=== PATIENT | female | born 1980 | race Caucasian/White ===

== ENCOUNTER 2016-07-18 10:20 | Emergency (ER) | payer BC ==
[~2016-07-18] VITALS: Ht 165.1 cm; Wt 59.4 kg
[~2016-07-18 10:20] MED LIST: ASPI-390 PO; GABA-112 PO; IBUP-103 PO; PARO10TA PO
[2016-07-18 10:24] VITALS: Ht 165.1 cm; Wt 59.4 kg
[2016-07-18] MEDS ORDERED: AZITTAB PO (10:32)
[2016-07-18] MEDS ORDERED: KETOROLAC TROMETHAMINE 60 MG/2 ML VIAL IM STA (11:16)
[2016-07-18] MEDS ORDERED: PROCHLORPERAZINE 5 MG/ML 2 ML VIAL IM STA (11:16)
[2016-07-18] MEDS ORDERED: DiphenhydrAMINE HCL 50 MG/ML VIAL IM STA (11:16)
[2016-07-18] MEDS ORDERED: DEXAMETHASONE SOD INJ 10 MG/ML VIAL IM ONE (11:30)
[2016-07-18 11:49] VITALS: TEMP 36.7
[2016-07-18] MEDS ORDERED: PERCOCET HOME PACK PO ONE (12:15)
--- NOTE | 2016-07-18 12:24 | EMERGENCY ROOM VISIT NOTE ---
ED Visit Note First contact with patient: 10:51 CHIEF COMPLAINT: Migraine headache 2 days HISTORY OF PRESENT ILLNESS: Patient is an otherwise healthy 36-year-old white female who does suffer from migraine headaches, who presents the emergency department for evaluation of a migraine 2 days. Patient states that the headache started yesterday. She took Benadryl and ibuprofen, and the symptoms improved slightly. She states that when she woke up however the headache had returned and was intolerable. She rates her discomfort a 9/10. She describes a throbbing, frontal headache with associated nausea, vomiting, photo and phonophobia. Patient reports that she is finishing a course of azithromycin. She also took Tamiflu prophylactically. Ago after her tested positive for influenza B. Patient followed by Dr. Amaya of neurology. She has had thorough workup for her migraines including laboratory studies and MRI. She states that she has been on multiple preventative and abortive medications, but they are ineffective and therefore she does not take anything for her migraines. She states that other than the frontal location this does feel typical of a bad migraine for her. She denies any fever or chills, posterior neck pain or stiffness. No difficulty with balance, speech or coordination. No weakness or numbness of the extremities. No trauma to the head and no neck pain. REVIEW OF SYSTEMS: Review of systems as per HPI. All other systems reviewed were negative. 10 systems reviewed. PMH: Electronic medical records are reviewed and summarized as above/below. See Problem List. SOCIAL HISTORY: Patient lives at home with her and children. Nonsmoker. She is employed as a teacher.. PHYSICAL EXAM: Vital Signs: Reviewed Nurse's notes. General Appearance: Patient is an uncomfortable appearing 36-year-old white female who is awake and alert and laying in a darkened room in moderate distress due to her migraines. Eyes: Pupils equal round reactive to light extraocular muscles are intact, no proptosis, mild photophobia ENT: Oropharynx is clear, mucous membranes are moist, tympanic membranes are clear bilaterally, no sinus or dental tenderness Neck: Supple, no cervical lymphadenopathy, no meningismus Heart: Regular rate and rhythm, S1 and S2 Lungs: Clear to auscultation bilaterally, no wheezes Rales or rhonchi, no increased work of breathing Abdomen: Soft nontender nondistended. Normal active bowel sounds. No rebound. No guarding. Back: No midline tenderness to palpation. : No CVA tenderness to palpation. Skin: Warm, no diaphoresis, no rashes. Extremities: No cyanosis, clubbing, or edema Neurologic: Patient is awake alert, and oriented x 3. Cranial nerves 2-12 are grossly intact. Motor 5 out of 5 strength bilateral upper extremities and lower extremities. No gross sensory deficits. Reflexes are 2+ throughout. EMERGENCY DEPARTMENT COURSE: The patient is seen and evaluated as above. She is seen infrequently for migraines. She typically receives intramuscular therapy. She declines IV. She was given Toradol 60 mg IM, Benadryl 25 mg IM, Compazine 10 mg IM and Decadron 10 mg IM. The patient was reassessed. She reported that her headache had improved and she was feeling well enough to be discharged to home. She was given a Percocet home pack. She rated her discomfort a 2/10 at discharge. A family member is driving. Differential includes: acute intracranial bleed, meningitis, encephalitis, mass or mass effect, sinusitis, infection, migraine, tumor, headache, temporal arteritis and carbon monoxide exposure. Problem List Medical Problems: (1) Breech presentation Status: Resolved (2) Chest pain Status: Resolved (3) ESOPHAGEAL REFLUX Status: Chronic (4) Gestational hypertension Status: Resolved (5) Hypertension Status: Resolved (6) Migraine headache Status: Chronic (7) Normal labor Status: Resolved (8) Normal labor Status: Resolved (9) Ovarian cyst Status: Resolved (10) Patient currently Status: Resolved (11) -induced hypertension Status: Resolved (12) R/O PROM 22 weeks Status: Resolved (13) R/O PROM 22 weeks Status: Resolved (14) Vaginal after , delivered, current hospitalization Status: Resolved Surgical Problems: (1) Previous delivery affecting Status: Resolved Current/Historical Medications Scheduled Czqpuvv-Pmddnfnmdfrct-Hoykdlwc (Excedrin Migraine), 2 TABS PO PRN UD Azithromycin (Zithromax Z-Duncan), 1 PKT PO UD Ibuprofen Tab (Advil), 600 MG PO PRN UD Allergies Coded Allergies: No Known Allergies (Unverified , NONE, 07/18/16) Vital Signs Date Time Temp Pulse Resp B/P Pulse Ox O2 Delivery O2 Flow Rate FiO2 07/18/16 12:46 68 104/68 96 Room Air 07/18/16 11:49 36.7 87 16 122/87 98 Room Air 07/18/16 10:24 36.9 86 20 146/96 98 Room Air Medications Administered Medications (Trade) Dose Ordered Sig/Annette Route Start Time Stop Time Status Last Admin Dose Admin Ketorolac Tromethamine (Toradol Inj) 60 mg NOW STAT IM 07/18/16 11:16 07/18/16 11:18 DC 07/18/16 11:40 60 MG Diphenhydramine HCl (Benadryl Inj) 25 mg NOW STAT IM 07/18/16 11:16 07/18/16 11:18 DC 07/18/16 11:38 25 MG Prochlorperazine Edisylate (Compazine Inj) 10 mg NOW STAT IM 07/18/16 11:16 07/18/16 11:18 DC 07/18/16 11:39 10 MG Dexamethasone Sodium Phosphate (Decadron Inj) 10 mg NOW ONCE IM 07/18/16 11:30 07/18/16 11:31 DC 07/18/16 11:37 10 MG Oxycodone/ Acetaminophen (Percocet 5/ 325MG Home Pack) 1 homepack UD ONCE PO 07/18/16 12:15 07/18/16 12:16 DC 07/18/16 12:51 1 HOMEPACK Departure Information Impression Primary Impression: Headache Referrals Cuco Liriano M.D.([facility]) (PCP) Patient Instructions My [facility] Additional Instructions DO NOT drive, drink alcohol, operate machinery, or perform dangerous activities today. You were given medications in the ER that can affect your ability to safely function or operate a vehicle. Percocet 1-2 tablets every 4-6 hours as needed for breakthrough pain. Rest today in a quiet, peaceful, dark environment and get a full 8-10 hrs of sleep tonight. Avoid loud noises, smoke/smoking, alcohol, bright lights, stress, or physical exertion today to minimize the chance the headache may return. Continue current medications. Ibuprofen(Motrin, Advil) may be used for fever or pain. Use 600mg every six hours as needed. Take with food. Avoid using more than 2400mg in a 24 hour period. Do not use 2400mg per day for more than three consecutive days without physician direction. Prolonged inappropriate use can lead to stomach upset or ulcers. (AND/OR) Acetaminophen(Tylenol) may be used for fever or pain. Use 1000mg every six hours as needed. Avoid using more than 3000mg in a 24 hour period. Return to the ER for passing out, worsening headache, vision problems, neck stiffness/pain, fevers, vomiting, worsening of your condition, or as needed. Follow up with your primary physician or neurologist if needed for a recheck of your current condition.
[2016-07-18 12:46] VITALS: BP 104/68; PULSE 68; O2SAT 96
== END 2016-07-18 12:50 | disposition home or self-care (01) ==
LOC: C.EDB 10:22 → C.EDD 12:50
DX: G43.909 Migraine, unspecified, not intractable, without status migrainosus (principal); K21.9 Gastro-esophageal reflux disease without esophagitis

== ENCOUNTER → 2016-10-15 | Outpatient (CLI) | payer BC ==
[~2016-10-15] MED LIST changes: +AZITTAB PO; -GABA-112 PO; -PARO10TA PO
== END | disposition home or self-care (01) ==
LOC: C.PAPS 18:10
PROVIDERS: ATTEND Physician Assistant
DX: Z01.419 Encounter for gynecological examination (general) (routine) without abnormal findings (principal)

== ENCOUNTER → 2017-04-10 | Outpatient (CLI) | payer BC | END | disposition home or self-care (01) | LOC: C.LAB1850 14:58 | PROVIDERS: ATTEND Obstetrics & Gynecology | DX: N83.209 Unspecified ovarian cyst, unspecified side (principal) ==

== ENCOUNTER → 2017-11-27 | Outpatient (CLI) | payer BC ==
[2017-11-27 16:21] LABS: BASO % 0.1 %; BASO ABS # 0.01 K/uL (0-0.2); EOS % 0.3 %; EOS ABS # 0.03 K/uL (0-0.5); HEMATOCRIT 37.3 % (37-47); HEMOGLOBIN 13.8 g/dL (12.0-16.0); IG# 0.01 K/uL (0.00-0.02); LYMPH % 21.5 %; LYMPH ABS # 1.91 K/uL (1.2-3.4); MEAN CELL VOLUME 87.1 fL (80-100); MEAN CORPUSCULAR HEMOGLOBIN 32.2 pg (25-34); MEAN PLATELET VOLUME 10.1 fL (7.4-10.4); MONO ABS # 0.62 K/uL (0.11-0.59); NEUT ABS # 6.29 K/uL (1.4-6.5); PLATELET COUNT 258 K/uL (130-400); RED CELL DISTRIBUTION WIDTH CV 12.3 % (11.5-14.5); RED CELL DISTRIBUTION WIDTH SD 39.7 fL (36.4-46.3); WHITE BLOOD COUNT 8.87 K/uL (4.8-10.8)
== END | disposition home or self-care (01) ==
LOC: C.LAB1850 15:27
PROVIDERS: ATTEND Obstetrics & Gynecology
DX: O09.891 Supervision of other high risk pregnancies, first trimester (principal)

== ENCOUNTER 2018-06-19 08:13 | Inpatient (IN) ==
[2018-06-19] MEDS ORDERED: OXYTOCIN 30 UNITS/500 ML BAG IV PRN ×3 (08:40→16:05)
[2018-06-19] MEDS ORDERED: LACTATED RINGER'S 1,000 ML IV PRN ×3 (08:40→12:04)
[2018-06-19 08:56] LABS: Hematocrit (blood only) 34.8 % (37-47); Hemoglobin 11.4 g/dL (12.0-16.0); Mean Corpuscular Volume 83.5 fL (80-100); Mean Platelet Volume 10.8 fL (7.4-10.4); Platelet Count 192 K/uL (130-400); RDW Coefficient of Variation 14.8 % (11.5-14.5); RDW Standard Deviation 44.7 fL (36.4-46.3); Red Blood Count 4.17 M/uL (4.2-5.4); White Blood Count 8.19 K/uL (4.8-10.8)
[2018-06-19 09:02] LABS: Mean Corpuscular Hgb Conc 32.8 g/dL (32-36)
--- NOTE | 2018-06-19 09:07 | History & Physical Report ---
Date of Service June 19, 2018 Assessment & Plan (1) Gestational hypertension: induction of labor because of gestational hypertension Present on Admission?: Yes (2) Encounter for induction of labor: gross balloon was inserted without difficulty. 40 cc normal saline was placed in the balloon. will now begin pitocin induction of labor planning on epidural analgesia. anticipate vaginal . History of Present Illness Primary Care Provider: Cuco Liriano MD patient is a 38 yo white female who presents at 37 weeks for induction of labor for gestational hypertension. otherwise is complicated by AMA. GBS is negative. patient also had a primary section with her first followed by a successful vaginal after . patient reports no contractions or changes in discharge or SROM. Allergies Allergy/AdvReac Type Severity Reaction Status Date / Time No Known Allergies Allergy NONE Verified 05/07/18 16:22 Home Medications Home Medications Medication Instructions Recorded Confirmed Type aspirin 81 mg PO DAILY 05/07/18 06/19/18 History magnesium 250 mg PO DAILY 05/07/18 06/19/18 History vitamin B complex 1 tab PO DAILY 05/07/18 06/19/18 History PNV cmb#95-ferrous fumarate-FA 1 tab PO DAILY 06/19/18 06/19/18 History [] Patient History Medical History Currently Gestational HTN Social History Preferred Language: Mexican marital status: Feels Safe at Home: Yes Smoking Status: Former smoker Hx Alcohol Use: No Hx Substance Use: No Review of Systems All systems reviewed & are unremarkable except as noted in HPI & below Physical Exam Vital Signs (Past 24 Hours): Last Vital Signs Pulse 101 H 06/19/18 08:20 BP 145/92 H 06/19/18 08:20 Constitutional: WD/WN, vitals as above Respiratory: normal respiratory effort, lungs clear to auscultation Cardiovascular: RRR, no murmur, no edema Gastrointestinal (Abdomen): normal bowel sounds, soft, nontender, no hepatosplenomegaly Genitourinary: OB Exam Abdomen: + fundal height, + vertex and + estimated weight (6-7 pounds) Manual OB Exam: + cervical dilation 1 cm, + cervical effacement 50% and + station -2 OB Exam Monitor Tracing: + external FHT monitor used, + external uterine monitor used, + category I and + normal FHT variability
[2018-06-19] MEDS: LACTATED RINGER'S 1,000 ML IV SCH ×2 (09:27→12:00)
[2018-06-19] MEDS ORDERED: LABETALOL HCL IV 5 MG/ML 20ML IV STA (09:52)
[2018-06-19 10:33] LABS: Creatinine Clr Calc Pharmacy 144.6 ml/min; Est GFR (African American) 140.7; Est GFR (Non-African American) 121.4
[2018-06-19] MEDS ORDERED: fentaNYL citrate 100 MCG/2 ML VIAL ONE (11:15)
[2018-06-19] MEDS ORDERED: BUPIVACAINE 0.25% 30 ML VIAL ONE (11:15)
[2018-06-19] MEDS ORDERED: ePHEDrine sulfate 50 MG/ML AMP ONE (11:15)
[2018-06-19] MEDS ORDERED: fentaNYL 2MCG/ML ROPIV 1.25MG/ML 100 ML BAG EPI ONE (11:16)
--- NOTE | 2018-06-19 11:41 | Anesthesiology Consultation ---
Date of Service June 19, 2018 Assessment & Plan (1) Encounter for pre-operative examination: Chart Review Chart Review: Acceptable Risk for Labor Epidural Consults Requested none ASA ASA2 Proposed Anesthesia Anesthesia Type: Labor Epidural Risk / Benefits Reviewed With: PT / POA / Parent / Guardian, Accepts Plan and Informed Consent Obtained History Height/Weight Height: 5 ft 5 in Weight: 73.482 kg Allergies Allergy/AdvReac Type Severity Reaction Status Date / Time No Known Allergies Allergy NONE Verified 05/07/18 16:22 Medications Home Medications Medication Instructions Recorded Confirmed Last Taken aspirin 81 mg PO DAILY 05/07/18 06/19/18 06/17/18 21:00 magnesium 250 mg PO DAILY 05/07/18 06/19/18 06/18/18 21:00 vitamin B complex 1 tab PO DAILY 05/07/18 06/19/18 06/18/18 21:00 PNV cmb#95-ferrous fumarate-FA 1 tab PO DAILY 06/19/18 06/19/18 06/18/18 21:00 [] Active Medications Generic Name Dose Route Start Last Admin Trade Name Freq PRN Reason Stop Dose Admin Lactated Ringer's 1,000 mls @ 125 mls/hr 06/19/18 08:45 06/19/18 11:10 Lr IV 06/21/18 08:44 999 mls/hr .Q8H CALEB Infusion Oxytocin 30 units in 500 mls @ 5 mls/hr 06/19/18 08:43 06/19/18 10:34 Pitocin IV 06/21/18 08:42 0.3 units/hr .Q24H PRN 5 mls/hr Labor Induction/Augmentation Titration Protocol 0.3 UNITS/HR Past Medical History Medical History delivery delivered Currently Gestational HTN Past Surgical History Surgical History No pertinent past surgical history Past Anesthesia History No Hx of Anesthesia Complications and No Family Hx of Anesthesia Complications History of PONV No Motion Sickness Screening History of Motion Sickness: No Social History Smoking Status: Never smoker Hx Alcohol Use: No Hx Substance Use: No substance use type: does not use Exercise / Class Metabolic Activity II 4-5 Yardwork/Stairs/Walk up hill Physical Exam Vital Signs Last Vital Signs Temp 97.5 F L 06/19/18 08:40 Pulse 80 06/19/18 11:19 Resp 20 06/19/18 08:40 BP 148/95 H 06/19/18 11:19 ENMT Mouth: no dentition abnormality Thyromental Distance: > or= 3.5 Finger Breadths Mallampati Class: I Neck normal visual inspection Respiratory normal respiratory effort Auscultation: lungs clear to auscultation bilaterally Cardiovascular Rate/Rhythm: regular rate and regular rhythm Testing Laboratory Results 06/19/18 08:47 06/19/18 10:03 Blood Type O Negative 06/19/18 08:47 Antibody Screen NEGATIVE 06/19/18 08:47
[2018-06-19] MEDS ORDERED: NALBUPHINE HCL INJ 10 MG/ML AMP IV PRN (12:04)
[2018-06-19] MEDS ORDERED: ePHEDrine sulfate 50 MG/ML AMP IV PRN (12:04)
[2018-06-19] MEDS ORDERED: DiphenhydrAMINE HCL 50 MG/ML VIAL IV PRN (12:04)
[2018-06-19] MEDS ORDERED: NALOXONE HCL 0.4 MG/1 ML VIAL/CARP IV PRN (12:04)
[2018-06-19] MEDS ORDERED: fentaNYL 2MCG/ML ROPIV 1.25MG/ML 100 ML BAG EPI PRN (12:04)
[2018-06-19] MEDS ORDERED: NALOXONE HCL 1 MG in SODIUM CHLORIDE 0.9% 1000ML 1,000 ML IV PRN (12:04)
[2018-06-19] MEDS ORDERED: ONDANSETRON INJ 2 MG/ML 2 ML VIAL IV PRN (12:04)
[2018-06-19] MEDS ORDERED: CALCIUM CARBONATE 500 MG CHEWABLE TAB PO PRN (14:09)
[2018-06-19] MEDS ORDERED: BISACODYL 10 MG SUPP PR PRN (16:05)
[2018-06-19] MEDS ORDERED: BENZOCAINE 20% AER SPR 82.5 GM CAN EXT PRN (16:05)
[2018-06-19] MEDS ORDERED: HYDROCORTISONE ACETATE 25 MG SUPP PR PRN (16:05)
[2018-06-19] MEDS ORDERED: SUPERCREAM 0.870% 15 GM JAR EXT PRN (16:05)
[2018-06-19] MEDS ORDERED: DIPHTHERIA/TETANUS/PERTUSSIS 0.5 ML SYR/VIAL IM ONE (16:05)
--- NOTE | 2018-06-19 18:19 | Anesthesia Procedure Note ---
Date of Service June 19, 2018 Anesthesia Post Epidural Note Vital Signs Vital Signs: Temp Pulse Resp BP Pulse Ox 98.1 F 117 H 20 138/78 98 06/19/18 15:30 06/19/18 18:18 06/19/18 17:03 06/19/18 18:18 06/19/18 16:02 Pain Intensity Right Hip: Pain Intensity: 0 Notes Mental Status: alert / awake / arousable and participated in evaluation Nausea / Vomiting: adequately controlled Pain: adequately controlled Airway Patency, RR, SpO2: stable & adequate BP & HR: stable & adequate Hydration State: stable & adequate Neuraxial Anesthesia: was administered and sensory block is resolving Anesthetic Complications: no major complications apparent and Pt Satisfied with anesthetic care Epidural: Removed without complications and With tip intact
[2018-06-19] MEDS: IBUPROFEN 600 MG TAB PO PRN (19:06)
[2018-06-19] MEDS: DOCUSATE SODIUM 100 MG CAP PO SCH (20:04)
[2018-06-19] MEDS: MAGNESIUM OXIDE 400 MG TAB PO SCH (21:30)
[2018-06-19] MEDS: VITAMIN B COMPLEX TAB PO SCH (21:30)
--- NOTE | 2018-06-19 22:38 | Delivery Summary ---
DATE OF OPERATION: 06/19/2018 DELIVERY NOTE The patient is a 38-year-old 4, para 2-0-1-2 white female, EDC of 07/09/2018 presented for induction because of gestational hypertension. Her PIH labs have been within normal limits. Cervix was 1 cm and 50% effaced upon arrival in labor and delivery. A cervical balloon was placed without difficulty and Pitocin induction of labor was begun. The balloon was extruded at approximately 1300 hours and cervix was 4 cm dilated at that time. The membranes were ruptured for clear fluid. The patient then progressed rapidly to full dilation and pushed effectively over intact perineum for delivery of a viable male infant. Loose nuchal cord was reduced after delivery of the head. Rest of the infant delivered easily and was placed on the mother's abdomen for further attention and drying. There was vigorous crying and the infant was moving all 4 limbs. The cord was then clamped and cut after 30 seconds. After cord blood was obtained. The placenta was expressed intact with a 3-vessel cord. The first degree perineal laceration was repaired with 3-0 chromic in usual fashion. A superficial first degree laceration of the right labia minora was not bleeding and not repaired. Mother and infant were doing well after delivery. ESTIMATED BLOOD LOSS: 200 mL. bleeding was controlled with dilute Pitocin. I attest to the content of the Intraoperative Record and any orders documented therein. Any exception s are noted below.
[2018-06-20] MEDS: IBUPROFEN 600 MG TAB PO PRN ×3 (00:19→16:31)
[2018-06-20] MEDS: ACETAMINOPHEN 325 MG TAB PO PRN ×2 (01:21→20:12)
[2018-06-20 06:22] LABS: Hematocrit (blood only) 32.4 % (37-47); Hemoglobin 10.7 g/dL (12.0-16.0); Mean Corpuscular Volume 83.9 fL (80-100); Mean Platelet Volume 10.9 fL (7.4-10.4); Platelet Count 181 K/uL (130-400); RDW Standard Deviation 44.9 fL (36.4-46.3); Red Blood Count 3.86 M/uL (4.2-5.4); White Blood Count 11.74 K/uL (4.8-10.8)
--- NOTE | 2018-06-20 06:46 | Obstetrical Progress Note ---
Date of Service June 20, 2018 Assessment & Plan (1) Status post vaginal delivery: Patient is a 38 year old PPD 1 s/p -Vital signs WNL bp 126/88 T37.1, pt has hx of ghtn continue to monitor of si/sx -Hemoglobin is 10.7 down from 11.4 on admission. no si/sx of anemia. -Pt is doing clinically well -Continue to encourage ambulation as tolerated, Monitor and control pain with motrin prn, Continue diet as tolerated. -Continue to support and encourage breast feeding -Routine care Supervising Physician Co-Signing Physician Notes Resident Physician Supervision Note: I interviewed and examined the patient. Discussed with Dr. Presley Billings and agree with findings and plan as documented in the note. Any exceptions or clarifications are listed here: [None] Documented By: Sara Allen MD, FACOG Subjective Mom sitting up in bed craddling baby with dad at the bedside sleeping. No acute complaints overnight. Patient is tolerating her diet, ambulating, passing gas and voiding, still no bm. Reports moderate lochia. Denies H/A, abdominal pain, chest pain, palpitations and uti syx. No concerns at this time pain is well controlled Physical Exam Vital Signs (Past 24 Hours): Last Vital Signs Temp 37.1 C 06/20/18 03:45 Pulse 89 06/20/18 03:45 Resp 16 06/20/18 03:45 BP 126/88 06/20/18 03:45 Pulse Ox 98 06/20/18 03:45 Constitutional: WD/WN, vitals as above Eyes: normal visual bernard by confrontation Respiratory: normal respiratory effort, lungs clear to auscultation Cardiovascular: RRR, no murmur, no edema Extremities: no calf tenderness Gastrointestinal (Abdomen): normal bowel sounds, soft, nontender, no hepatosplenomegaly uterus firm and below umbilicus Skin: no rashes, warm and dry Results & Data Laboratory Results 06/20/18 06/20/18 06/19/18 Range/Units 06:09 06:09 10:03 WBC 11.74 H (4.8-10.8) K/uL RBC 3.86 L (4.2-5.4) M/uL Hgb 10.7 L (12.0-16.0) g/dL Hct 32.4 L (37-47) % MCV 83.9 (80-100) fL MCH 27.7 (25-34) pg MCHC 33.0 (32-36) g/dL RDW Std Deviation 44.9 (36.4-46.3) fL RDW Coeff of [place] 15.0 H (11.5-14.5) % Plt Count 181 (130-400) K/uL MPV 10.9 H (7.4-10.4) fL Creatinine 0.54 L (0.6-1.2) mg/dl Est Cr Clr Drug Dosing 144.6 ml/min Est GFR ( Amer) 140.7 Est GFR (Non-Af Amer) 121.4 AST 19 (15-37) U/L ALT 24 (12-78) U/L Blood Type Pending Antibody Screen Pending Screen Pending 06/19/18 06/19/18 Range/Units 08:47 08:47 WBC 8.19 (4.8-10.8) K/uL RBC 4.17 L (4.2-5.4) M/uL Hgb 11.4 L (12.0-16.0) g/dL Hct 34.8 L (37-47) % MCV 83.5 (80-100) fL MCH 27.3 (25-34) pg MCHC 32.8 (32-36) g/dL RDW Std Deviation 44.7 (36.4-46.3) fL RDW Coeff of [place] 14.8 H (11.5-14.5) % Plt Count 192 (130-400) K/uL MPV 10.8 H (7.4-10.4) fL Creatinine (0.6-1.2) mg/dl Est Cr Clr Drug Dosing ml/min Est GFR ( Amer) Est GFR (Non-Af Amer) AST (15-37) U/L ALT (12-78) U/L Blood Type O Negative Antibody Screen NEGATIVE Screen Medications Administered Current Inpatient Medications Acetaminophen (Tylenol) 650 mg PO Q6H PRN PRN Reason: Pain/ARRIOLA/Fever Stop: 07/19/18 16:04 Last Admin: 06/20/18 01:21 Dose: 650 mg Documented by: Benzocaine (Dermoplast Pain Relieving [place]) 1 appln EXT PRN PRN PRN Reason: Perineal Discomfort Stop: 07/19/18 16:04 Last Admin: 06/19/18 20:06 Dose: 1 appln Documented by: Bisacodyl (Dulcolax) 5 mg PO 2000 [facility] Stop: 06/20/18 20:01 Bisacodyl (Dulcolax) 10 mg [place] DAILY PRN PRN Reason: No BM on 2nd post- day Stop: 07/19/18 16:04 Calcium Carbonate (Tums) 500 mg PO Q6 PRN PRN Reason: Indigestion Stop: 07/19/18 14:08 Last Admin: 06/19/18 14:26 Dose: 500 mg Documented by: Cocaine HCl (Supercream 0.870%) 1 gm EXT BID PRN PRN Reason: Hemorrhoidal Inflammation Stop: 07/03/18 16:04 Diphenhydramine HCl (Benadryl) 25 mg IV Q6H PRN PRN Reason: Itching Stop: 06/20/18 12:03 Docusate Sodium (Colace) 100 mg PO BID [facility] Stop: 07/19/18 20:59 Last Admin: 06/19/18 20:04 Dose: 100 mg Documented by: Ephedrine Sulfate (Ephedrine Sulfate) 10 mg IV Q5M PRN PRN Reason: Hypotension Stop: 06/20/18 12:03 Hydrocortisone (Anusol Hc) 25 mg [place] BID PRN PRN Reason: Hemorrhoidal Inflammation Stop: 07/19/18 16:04 Lactated Ringer's (Lr) 1,000 mls @ 999 mls/hr IV .Q1H1M PRN PRN Reason: (Pre-Anesthesia) Stop: 07/19/18 08:39 Naloxone HCl 1 mg/ Sodium (Chloride) 1,002.5 mls @ 50 mls/hr IV .Q20H3M PRN PRN Reason: itching or nausea Stop: 06/20/18 12:03 Oxytocin (Pitocin) 30 units in 500 mls @ 333.333 mls/hr IV .Q1H30M PRN; Protocol PRN Reason: BLEEDING CONTROL Stop: 07/19/18 16:04 Ibuprofen (Motrin) 600 mg PO Q4H PRN PRN Reason: Pain/ARRIOLA/Cramping/Fever Stop: 07/19/18 16:04 Last Admin: 06/20/18 06:15 Dose: 600 mg Documented by: Magnesium Oxide (Mag-Ox) 400 mg PO QPM [facility] Stop: 07/19/18 20:59 Last Admin: 06/19/18 21:30 Dose: 400 mg Documented by: Nalbuphine HCl (Nubain) 5 mg IV Q10M PRN PRN Reason: itching or nausea Stop: 06/20/18 12:03 Naloxone HCl (Narcan) 0.1 mg IV UD PRN PRN Reason: respiratory depression Stop: 06/20/18 12:03 Ondansetron HCl (Zofran) 4 mg IV Q6H PRN PRN Reason: Nausea And Vomiting Stop: 06/20/18 12:03 Oxycodone/Acetaminophen (Percocet 5mg/325mg) 1 tab PO Q4H PRN PRN Reason: Pain not relieved by... Stop: 07/03/18 16:04 Prenat Multivit/Full Time Babysitter/Iron/Folic Ac ( Vitamin) 1 tab PO QAM [facility] Stop: 07/20/18 08:59 Ropivacaine (Epidural (L&D)) 100 ml EPI PRN PRN; Protocol PRN Reason: Pain R/T Labor Stop: 06/20/18 12:03 Vitamin B Complex (Vitamin B Complex) 1 tab PO QPM [facility] Stop: 07/19/18 20:59 Last Admin: 06/19/18 21:30 Dose: 1 tab Documented by: Resident Activity Tracking Resident Involvement: Resident Care Provided Care Provided: Adult Hospital Medicine
[2018-06-20] MEDS: PRENATAL VITAMIN 1 TAB PO SCH (09:16)
[2018-06-20] MEDS: DOCUSATE SODIUM 100 MG CAP PO SCH ×2 (09:16→20:12)
[2018-06-20 16:52] LABS: Basophils # (auto) 0.01 K/uL (0-0.2); Basophils % (auto) 0.1 %; Eosinophils # (auto) 0.14 K/uL (0-0.5); Eosinophils % (auto) 1.4 %; Hematocrit (blood only) 31.5 % (37-47); Hemoglobin 10.3 g/dL (12.0-16.0); Immature Granulocytes # (auto) 0.04 K/uL (0.00-0.02); Immature Granulocytes % (auto) 0.4 %; Lymphocytes # (auto) 1.88 K/uL (1.2-3.4); Lymphocytes % (auto) 19.3 %; Mean Corpuscular Volume 84.5 fL (80-100); Mean Platelet Volume 10.9 fL (7.4-10.4); Monocytes # (auto) 0.65 K/uL (0.11-0.59); Monocytes % (auto) 6.7 %; Neutrophils % (auto) 72.1 %; Platelet Count 197 K/uL (130-400); RDW Coefficient of Variation 15.2 % (11.5-14.5); RDW Standard Deviation 45.9 fL (36.4-46.3); Red Blood Count 3.73 M/uL (4.2-5.4); White Blood Count 9.72 K/uL (4.8-10.8)
[2018-06-20 16:54] LABS: Mean Corpuscular Hgb Conc 32.7 g/dL (32-36)
[2018-06-20 17:08] LABS: Albumin Level 2.2 gm/dl (3.4-5.0); BUN Creatinine Ratio 16.7 (10-20); Creatinine Clr Calc Pharmacy 139.4 ml/min; Potassium 3.9 mmol/L (3.5-5.1)
[2018-06-20 17:10] LABS: Albumin Globulin Ratio 0.7 (0.9-2); Bilirubin,Total 0.2 mg/dl (0.2-1); Globulin 3.1 gm/dl (2.5-4.0); Total Protein 5.3 gm/dl (6.4-8.2)
[2018-06-20] MEDS ORDERED: NIFEdipine EXTENDED REL 30 MG TABCR PO STA (17:29)
--- NOTE | 2018-06-20 17:31 | Obstetrical Progress Note ---
Date of Service June 20, 2018 Subjective Asymptomatic, but elevated BPs. Most recent 160/105. Preeclampsia labs are normal. Will give Procardia XL 30mg. Discussed with patient. She is agreeable. Physical Exam Vital Signs (Past 24 Hours): Last Vital Signs Temp 36.9 C 06/20/18 16:15 Pulse 92 H 06/20/18 16:15 Resp 18 06/20/18 16:15 BP 160/105 H 06/20/18 17:18 Pulse Ox 97 06/20/18 16:15
[2018-06-20] MEDS ORDERED: BISACODYL 5 MG TABEC PO SCH (20:00)
[2018-06-20] MEDS: MAGNESIUM OXIDE 400 MG TAB PO SCH (20:13)
[2018-06-20] MEDS: VITAMIN B COMPLEX TAB PO SCH (20:13)
[2018-06-21 06:46] LABS: Hemoglobin 9.9 g/dL (12.0-16.0)
--- NOTE | 2018-06-21 07:06 | Obstetrical Progress Note ---
Date of Service June 21, 2018 Assessment & Plan (1) Status post vaginal delivery: Patient is a 38 year old PPD 1 s/p -Vital signs WNL bp 138/93 T36.8, bp did well s/p procardia and remained normo tensive overnight -lab values for preeclampsia remain normal -obtain 3 outpt bps over the next week and f/u with PCP in 2 weeks, bring bp values to appt -Hemoglobin is 10.7 down from 11.4 on admission. no si/sx of anemia. -Pt is doing clinically well -Continue to encourage ambulation as tolerated, Monitor and control pain with motrin prn, Continue diet as tolerated. -Continue to support and encourage breast feeding -Counseled patient on discharge instructions including Vaginal bleeding, fevers, followup, lifting restrictions, breast feeding, vitamins, and nothing in the vagina for 6 weeks. Pt was agreeable -Plan for d/c today Supervising Physician Co-Signing Physician Notes I have seen/examined patient. I have read above note performed by resident and I agree with above. Any changes/additions are as follows: PPD#2 doing well. Elevated BPs yesterday, preeclampsia labs wnl, one dose of procardia 30mg XL given last night, asymptomatic. I discussed with patient - concern for dropping blood pressure too low with procardia in the period. Will discharge without this medication - but patient will come to the office for a blood pressure check on Saturday. She is agreeable to this plan. Carmela Egan DO [facility] Subjective Mom sleeping in bed with dad sleepping at the bedside. No acute complaints overnight. Patient is tolerating her diet, ambulating, passing gas and voiding, still no bm. Reports decreasing moderate lochia. Denies H/A, abdominal pain, chest pain, palpitations and uti syx. tolerated procardia well without and adverse events. No concerns at this time pain is well controlled Physical Exam Vital Signs (Past 24 Hours): Last Vital Signs Temp 36.8 C 06/21/18 01:00 Pulse 90 06/21/18 06:30 Resp 18 06/21/18 01:00 BP 138/93 06/21/18 06:30 Pulse Ox 98 06/20/18 20:05 Constitutional: WD/WN, vitals as above Eyes: normal visual brenard by confrontation Respiratory: normal respiratory effort, lungs clear to auscultation Cardiovascular: RRR, no murmur, no edema Extremities: no calf tenderness Gastrointestinal (Abdomen): normal bowel sounds, soft, nontender, no hepatosplenomegaly (Uterus is firm and 2 fingers below the umbilicus) Skin: no rashes, warm and dry Results & Data Laboratory Results 06/21/18 06/20/18 06/20/18 Range/Units 06:33 16:40 16:40 WBC 9.72 (4.8-10.8) K/uL RBC 3.73 L (4.2-5.4) M/uL Hgb 9.9 L 10.3 L (12.0-16.0) g/dL Hct 31.0 L 31.5 L (37-47) % MCV 84.5 (80-100) fL MCH 27.6 (25-34) pg MCHC 32.7 (32-36) g/dL RDW Std Deviation 45.9 (36.4-46.3) fL RDW Coeff of [place] 15.2 H (11.5-14.5) % Plt Count 197 (130-400) K/uL MPV 10.9 H (7.4-10.4) fL Immature Gran % (Auto) 0.4 % Neut % (Auto) 72.1 % Lymph % (Auto) 19.3 % [place] % (Auto) 6.7 % Eos % (Auto) 1.4 % Baso % (Auto) 0.1 % Immature Gran # (Auto) 0.04 H (0.00-0.02) K/uL Neut # (Auto) 7.00 H (1.4-6.5) K/uL Lymph # (Auto) 1.88 (1.2-3.4) K/uL [place] # (Auto) 0.65 H (0.11-0.59) K/uL Eos # (Auto) 0.14 (0-0.5) K/uL Baso # (Auto) 0.01 (0-0.2) K/uL Sodium 139 (136-145) mmol/L Potassium 3.9 (3.5-5.1) mmol/L Chloride 109 H (98-107) mmol/L Carbon Dioxide 22 (21-32) mmol/L Anion Gap 8.0 (3-11) BUN 9 (7-18) mg/dl Creatinine 0.56 L (0.6-1.2) mg/dl Est Cr Clr Drug Dosing 139.4 ml/min Est GFR ( Amer) 139.0 Est GFR (Non-Af Amer) 120.0 BUN/Creatinine Ratio 16.7 (10-20) Glucose 88 (70-99) mg/dl Calcium 8.0 L (8.5-10.1) mg/dl Total Bilirubin 0.2 (0.2-1) mg/dl AST 22 (15-37) U/L ALT 22 (12-78) U/L Alkaline Phosphatase 98 (45-117) U/L Total Protein 5.3 L (6.4-8.2) gm/dl Albumin 2.2 L (3.4-5.0) gm/dl Globulin 3.1 (2.5-4.0) gm/dl Albumin/Globulin Ratio 0.7 L (0.9-2) Blood Type Antibody Screen Screen (Negative) 06/20/18 Range/Units 06:09 WBC (4.8-10.8) K/uL RBC (4.2-5.4) M/uL Hgb (12.0-16.0) g/dL Hct (37-47) % MCV (80-100) fL MCH (25-34) pg MCHC (32-36) g/dL RDW Std Deviation (36.4-46.3) fL RDW Coeff of [place] (11.5-14.5) % Plt Count (130-400) K/uL MPV (7.4-10.4) fL Immature Gran % (Auto) % Neut % (Auto) % Lymph % (Auto) % [place] % (Auto) % Eos % (Auto) % Baso % (Auto) % Immature Gran # (Auto) (0.00-0.02) K/uL Neut # (Auto) (1.4-6.5) K/uL Lymph # (Auto) (1.2-3.4) K/uL [place] # (Auto) (0.11-0.59) K/uL Eos # (Auto) (0-0.5) K/uL Baso # (Auto) (0-0.2) K/uL Sodium (136-145) mmol/L Potassium (3.5-5.1) mmol/L Chloride (98-107) mmol/L Carbon Dioxide (21-32) mmol/L Anion Gap (3-11) BUN (7-18) mg/dl Creatinine (0.6-1.2) mg/dl Est Cr Clr Drug Dosing ml/min Est GFR ( Amer) Est GFR (Non-Af Amer) BUN/Creatinine Ratio (10-20) Glucose (70-99) mg/dl Calcium (8.5-10.1) mg/dl Total Bilirubin (0.2-1) mg/dl AST (15-37) U/L ALT (12-78) U/L Alkaline Phosphatase (45-117) U/L Total Protein (6.4-8.2) gm/dl Albumin (3.4-5.0) gm/dl Globulin (2.5-4.0) gm/dl Albumin/Globulin Ratio (0.9-2) Blood Type O Negative Antibody Screen Cancelled Screen Negative (Negative) Medications Administered Current Inpatient Medications Acetaminophen (Tylenol) 650 mg PO Q6H PRN PRN Reason: Pain/ARRIOLA/Fever Stop: 07/19/18 16:04 Last Admin: 06/20/18 20:12 Dose: 650 mg Documented by: Benzocaine (Dermoplast Pain Relieving [place]) 1 appln EXT PRN PRN PRN Reason: Perineal Discomfort Stop: 07/19/18 16:04 Last Admin: 06/19/18 20:06 Dose: 1 appln Documented by: Bisacodyl (Dulcolax) 10 mg VT DAILY PRN PRN Reason: No BM on 2nd post- day Stop: 07/19/18 16:04 Calcium Carbonate (Tums) 500 mg PO Q6 PRN PRN Reason: Indigestion Stop: 07/19/18 14:08 Last Admin: 06/19/18 14:26 Dose: 500 mg Documented by: Cocaine HCl (Supercream 0.870%) 1 gm EXT BID PRN PRN Reason: Hemorrhoidal Inflammation Stop: 07/03/18 16:04 Docusate Sodium (Colace) 100 mg PO BID CALEB Stop: 07/19/18 20:59 Last Admin: 06/20/18 20:12 Dose: 100 mg Documented by: Hydrocortisone (Anusol Hc) 25 mg VT BID PRN PRN Reason: Hemorrhoidal Inflammation Stop: 07/19/18 16:04 Lactated Ringer's (Lr) 1,000 mls @ 999 mls/hr IV .Q1H1M PRN PRN Reason: (Pre-Anesthesia) Stop: 07/19/18 08:39 Oxytocin (Pitocin) 30 units in 500 mls @ 333.333 mls/hr IV .Q1H30M PRN; Protocol PRN Reason: BLEEDING CONTROL Stop: 07/19/18 16:04 Ibuprofen (Motrin) 600 mg PO Q4H PRN PRN Reason: Pain/ARRIOLA/Cramping/Fever Stop: 07/19/18 16:04 Last Admin: 06/20/18 16:31 Dose: 600 mg Documented by: Magnesium Oxide (Mag-Ox) 400 mg PO QPM [facility] Stop: 07/19/18 20:59 Last Admin: 06/20/18 20:13 Dose: 400 mg Documented by: Oxycodone/Acetaminophen (Percocet 5mg/325mg) 1 tab PO Q4H PRN PRN Reason: Pain not relieved by... Stop: 07/03/18 16:04 Prenat Multivit/[employer]orer/Iron/Folic Ac ( Vitamin) 1 tab PO QAM [facility] Stop: 07/20/18 08:59 Last Admin: 06/20/18 09:16 Dose: 1 tab Documented by: Vitamin B Complex (Vitamin B Complex) 1 tab PO QPM [facility] Stop: 07/19/18 20:59 Last Admin: 06/20/18 20:13 Dose: 1 tab Documented by: Resident Activity Tracking Resident Involvement: Resident Care Provided Care Provided: Adult Hospital Medicine
[2018-06-21] MEDS ORDERED: MAGNESIUM HYDROXIDE SUSP 30 ML UDC PO PRN (08:09)
[2018-06-21] MEDS: DOCUSATE SODIUM 100 MG CAP PO SCH ×2 (09:35→19:41)
[2018-06-21] MEDS: PRENATAL VITAMIN 1 TAB PO SCH (09:35)
--- NOTE | 2018-06-21 12:30 | Obstetrical Progress Note ---
Date of Service June 21, 2018 Assessment & Plan (1) Status post vaginal delivery: Patient reporting headache and was noted to have severe range BPs. - Repeat PIH labs - Restart Procardia 30mg daily. - canceled discharge order and requested that patient stay Subjective Patient reported headache and was noted to have severe range BPs. Physical Exam Vital Signs (Past 24 Hours) Last Vital Signs Temp 36.9 C 06/21/18 09:28 Pulse 102 H 06/21/18 12:21 Resp 20 06/21/18 12:21 BP 164/127 H 06/21/18 12:21 Pulse Ox 98 06/21/18 09:28
[2018-06-21 12:35] LABS: Hemoglobin 11.1 g/dL (12.0-16.0); Mean Platelet Volume 10.4 fL (7.4-10.4); Platelet Count 213 K/uL (130-400); RDW Coefficient of Variation 15.3 % (11.5-14.5); RDW Standard Deviation 46.3 fL (36.4-46.3); White Blood Count 10.75 K/uL (4.8-10.8)
[2018-06-21 12:57] LABS: Mean Corpuscular Hgb Conc 32.6 g/dL (32-36)
[2018-06-21 12:58] LABS: Creatinine Clr Calc Pharmacy 118.3 ml/min; Est GFR (African American) 131.7; Est GFR (Non-African American) 113.6
[2018-06-21] MEDS: NIFEdipine EXTENDED REL 30 MG TABCR PO SCH (13:14)
[2018-06-21] MEDS: IBUPROFEN 600 MG TAB PO PRN (15:48)
[2018-06-21] MEDS: OXYCODONE/ACETAMINOPHEN 5mg/325mg TAB PO PRN ×2 (17:12→23:14)
[2018-06-21] MEDS: MAGNESIUM OXIDE 400 MG TAB PO SCH (19:41)
[2018-06-21] MEDS: VITAMIN B COMPLEX TAB PO SCH (19:41)
[2018-06-22] MEDS: IBUPROFEN 600 MG TAB PO PRN (03:19)
--- NOTE | 2018-06-22 05:41 | Obstetrical Progress Note ---
Date of Service June 22, 2018 Assessment & Plan (1) Status post vaginal delivery: PPD 3 from . Doing well. Patient had headache and severe range BPs yesterday. Headache improved and BP normal to mild range - Stable for discharge - BP check early next week - D/c home with Procardia - PIH precautions discussed Subjective Ambulation: ambulating normally Voiding: no voiding problems Passing Gas:: Yes Diet Tolerance:: regular diet Lochia:: Small Feeding Type:: breast feeding Physical Exam Vital Signs (Past 24 Hours) Last Vital Signs Temp 37.1 C 06/22/18 03:15 Pulse 85 06/22/18 03:15 Resp 18 06/22/18 03:15 BP 120/77 06/22/18 03:15 Pulse Ox 98 06/21/18 19:35 Gastrointestinal (Abdomen) Percussion/Palpation: abdomen soft; abdomen nontender, no guarding and abdomen not rigid Genitourinary Speculum/Bimanual Exam: uterus not boggy and uterus nontender OB Exam Abdomen: + fundal height Fundus: + firm and + relation to umbilicus (Below); not tender and not boggy
[2018-06-22] MEDS: PRENATAL VITAMIN 1 TAB PO SCH (08:26)
[2018-06-22] MEDS: DOCUSATE SODIUM 100 MG CAP PO SCH (08:26)
[2018-06-22] MEDS: NIFEdipine EXTENDED REL 30 MG TABCR PO SCH (08:26)
--- NOTE | 2018-06-23 09:08 | Discharge Summary ---
Date of Service June 24, 2018 Discharge Data Consultations 06/19/18 08:40 Consult Anesthesiology Stat
--- NOTE | 2018-06-24 12:30 | Discharge Summary ---
PRINCIPAL PROCEDURE: Vaginal after section. OTHER PERTINENT HISTORY: Gestational hypertension and advanced maternal age HISTORY OF PRESENT ILLNESS AND HOSPITAL COURSE: The patient is a 38-year-old 4, para 2-0-1-2 white female who had presented for induction because of gestational hypertension. Preeclamptic labs have been normal. She received a cervical balloon for ripening and then Pitocin induction. She progressed to full dilation and pushed effectively for delivery of a viable male . Her course was unremarkable except for elevated blood pressures of 142/107, 145/81, 142/92, 164/127. The patient was started on nifedipine 30 mg q. a.m. The patient was asymptomatic at these blood pressures elevations. She was sent home with the usual instructions. She was sent home on nifedipine 30 mg p.o. q.a.m., She will be seen in the office for blood pressure check in approximately 1 week. JELANI
== END 2018-06-22 10:00 | disposition home or self-care (01) | DRG 807 ==
LOC: 4S1 08:13 → 4S2 18:30

== ENCOUNTER 2018-06-24 17:07 | Inpatient (IN) ==
[2018-06-24] MEDS ORDERED: SODIUM CHLORIDE 0.9% 500 ML IV SCH (17:45)
[2018-06-24] MEDS ORDERED: HydrALAZINE HCL 20 MG/ML VIAL IV STA ×2 (18:03→19:52)
[2018-06-24 18:15] LABS: Basophils # (auto) 0.02 K/uL (0-0.2); Basophils % (auto) 0.2 %; Eosinophils # (auto) 0.11 K/uL (0-0.5); Eosinophils % (auto) 1.2 %; Hematocrit (blood only) 36.9 % (37-47); Hemoglobin 11.9 g/dL (12.0-16.0); Immature Granulocytes # (auto) 0.04 K/uL (0.00-0.02); Immature Granulocytes % (auto) 0.4 %; Lymphocytes # (auto) 2.41 K/uL (1.2-3.4); Lymphocytes % (auto) 26.6 %; Mean Corpuscular Hgb Conc 32.2 g/dL (32-36); Mean Corpuscular Volume 85.2 fL (80-100); Mean Platelet Volume 10.2 fL (7.4-10.4); Monocytes # (auto) 0.64 K/uL (0.11-0.59); Monocytes % (auto) 7.1 %; Neutrophils # (auto) 5.83 K/uL (1.4-6.5); Neutrophils % (auto) 64.5 %; Platelet Count 314 K/uL (130-400); RDW Coefficient of Variation 15.6 % (11.5-14.5); RDW Standard Deviation 47.4 fL (36.4-46.3); Red Blood Count 4.33 M/uL (4.2-5.4); White Blood Count 9.05 K/uL (4.8-10.8)
[2018-06-24] MEDS ORDERED: DiphenhydrAMINE HCL 50 MG/ML VIAL IV STA (18:19)
[2018-06-24 18:24] LABS: Prothrombin Time 9.9 Seconds (9.0-12.0)
[2018-06-24] MEDS ORDERED: KETOROLAC 30 MG/ML VIAL IV ONE (18:29)
[2018-06-24 18:33] LABS: Albumin Level 2.8 gm/dl (3.4-5.0); Calcium 8.3 mg/dl (8.5-10.1); Creatinine Clr Calc Pharmacy 122.8 ml/min; Est GFR (African American) 138.2; Est GFR (Non-African American) 119.3; Potassium 3.7 mmol/L (3.5-5.1)
[2018-06-24 18:36] LABS: Albumin Globulin Ratio 0.7 (0.9-2); Bilirubin,Total 0.3 mg/dl (0.2-1); Globulin 3.9 gm/dl (2.5-4.0); Total Protein 6.7 gm/dl (6.4-8.2)
--- NOTE | 2018-06-24 19:11 | Emergency Department Note ---
ED Visit Note I assisted in the care of this patient with Dr. Streeter . Resident Activity Tracking Resident Involvement: Resident Care Provided Care Provided: Adult ED
--- NOTE | 2018-06-24 19:38 | CT Scan Report ---
CT SCAN OF THE BRAIN WITHOUT IV CONTRAST CLINICAL HISTORY: Headache. Hypertension. . COMPARISON STUDY: CT of the brain dated 11/28/2010. TECHNIQUE: Unenhanced axial CT scan of the brain is performed from the vertex to the skull base. A d ose lowering technique was utilized adhering to the principles of ALARA. CT DOSE: 537.48 mGy.cm FINDINGS: Brain parenchyma: The brain parenchyma is normal in appearance. There is no hemorrhage, mass effect, or evidence of acute territorial ischemia by CT criteria. Woods-white matter differentiation is preser luciano. No extra-axial fluid collection is seen. Ventricles, sulci, cisterns: Normal in configuration. Intracranial vasculature: The visualized intracranial vasculature at the skull base is normal in appe arance. Calvarium: Unremarkable. Sinuses and mastoids: The visualized paranasal sinuses are clear. The mastoid air cells are well pneu matized. Orbits: The bony orbits are grossly intact. IMPRESSION: No acute intracranial abnormality. Electronically signed by: Keshawn Bruce M.D. 06/24/2018 7:37 PM
[2018-06-24] MEDS ORDERED: MAGNESIUM SULFATE / D5W 1 GM/100 ML BAG IV ONE (20:17)
[2018-06-24] MEDS ORDERED: OXYTOCIN 30 UNITS/500 ML BAG IV PRN (20:50)
[2018-06-24] MEDS ORDERED: MAGNESIUM SULFATE 4GM / WTR 100 ML BAG IV ONE ×2 (20:54→22:07)
[2018-06-24] MEDS ORDERED: MAGNESIUM SULFATE 40GM / WTR 1,000 ML BAG IV ONE (22:07)
[2018-06-24] MEDS ORDERED: MAGNESIUM SULFATE / WTR 40 GM/1,000 ML BAG IV SCH (22:30)
[2018-06-24] MEDS ORDERED: LABETALOL HCL 100 MG TAB PO ONE (22:30)
[2018-06-24] MEDS ORDERED: BUTALBITAL/ACETAMIN/CAFFEINE TAB PO PRN (22:33)
--- NOTE | 2018-06-24 22:45 | History & Physical Report ---
Date of Service June 24, 2018 Patient is a 38 yo white female S/P successful on 06/19/18 after induction for gestational hypertension. Her blood pressures remained elevated postarptum & she was sent home on Nifedipine XR 30mg daily. She had a BP check on 06/23 18 & her BP was 136/92. she was asymptomatic yesterday except for persistent tongue numbness that started about 2 hours after delviery & predated starting the nifedipine. this has been an intermittent issue but it has continued since delivery and has not been getting better. Today she called the office with complaint of a persistent headache. BP in the office was 170/105 and she was sent to the ER for further evaluation. PIH labs are all normal. Head CT scan was also normal. She has had some blurry vision but no other PIH symptoms except the headache. Her BP has been elevated since her admission in the ER and as required IV hydralazine to bring it down clsoer to normotensive range. Because of the headache & elevated BP, she will be admitted for MgSO4 for 24 hours. Assessment & Plan (1) Pre-eclampsia: start Mg Sulfate bolus then 2mgs/hr for the next 24 hours. recheck PIH labs in AM add labetalol 100mg bid toradol 30mg IV PRN/ fioricet po PRN for headache Present on Admission?: Yes (2) Status post vaginal delivery: continue routine care. Present on Admission?: Yes History of Present Illness Primary Care Provider: Cuco Liriano MD Allergies Allergy/AdvReac Type Severity Reaction Status Date / Time No Known Allergies Allergy Verified 06/24/18 18:21 Home Medications Home Medications Medication Instructions Recorded Confirmed Type magnesium 250 mg PO DAILY 05/07/18 06/24/18 History vitamin B complex 1 tab PO DAILY 05/07/18 06/24/18 History PNV cmb#95-ferrous fumarate-FA 1 tab PO DAILY 06/19/18 06/24/18 History [] nifedipine [Adalat CC] 30 mg PO QAM 30 Days #30 tab 06/22/18 06/24/18 Rx lactobacillus combination no.4 1 cap PO DAILY 06/24/18 06/24/18 History [Probiotic] Patient History Medical History delivery delivered Currently Gestational HTN Surgical History No pertinent past surgical history Social History Preferred Language: Pashto Technical Document Writer Required: No Beliefs That Will Affect Care: None marital status: Current Living Situation: Family Other Information That Helps Us Care for You: No Feels Safe at Home: Yes Safety Concerns: Feels Safe At This Time Smoking Status: Current some day smoker Hx Alcohol Use: No Hx Substance Use: No Review of Systems All systems reviewed & are unremarkable except as noted in HPI & below Physical Exam Vital Signs (Past 24 Hours): Last Vital Signs Temp 36.7 C 06/24/18 22:09 Pulse 94 H 06/24/18 22:10 Resp 20 06/24/18 22:09 BP 159/97 H 06/24/18 22:10 Pulse Ox 98 06/24/18 21:56 Constitutional: WD/WN, vitals as above Respiratory: normal respiratory effort, lungs clear to auscultation Cardiovascular: RRR, no murmur, no edema Gastrointestinal (Abdomen): normal bowel sounds, soft, nontender, no hepatosplenomegaly Neurologic: patellar DTR's 2+ bilat, sensation intact (patellar reflexes brisk- no clonus) Genitourinary: OB Exam Abdomen: + fundal height Fundus: + firm and + relation to umbilicus (4 below U)
[2018-06-24] MEDS: LACTATED RINGER'S 1,000 ML IV SCH (22:57)
[2018-06-24] MEDS ORDERED: BUTALBITAL/ACETAMIN/CAFFEINE TAB PO ONE (23:00)
--- NOTE | 2018-06-24 23:20 | Emergency Department Note ---
Entered by Breanna Alvarez acting as a scribe for History of Present Illness General Chief complaint: Headache Stated complaint: HEADACHE, HIGH BP Time Seen by Provider: 06/24/18 17:36 Source: patient Mode of arrival: ambulatory Limitations: no limitations History of Present Illness Provider complaint: headache Onset (ago): hour(s) (last night) Location: head Pain Consistency: + other (persistent) Maximum Pain Intensity: 10 Current Pain Intensity: 7 Quality: + aching Associated symptoms: + other (hypertension, tongue numbness) The patient is a 38 year old female who presents to the Emergency Room with complaints of a persistent headache that began last night. The patient reports that her current headache came on gradually and states that she has a history of migraines but denies her current headache feeling similar. The patient also notes that she was recently and had episodes of hypertension and notes these have persisted since her delivery and have been in the 160s. She states that she had a vaginal delivery last . She notes that she did experience hypertension during her first as well but reports that they were not as severe. The patient denies any recent falls or traumas. She also reports that she was evaluate by her integrated marketing manager prior to arrival and referred to her ER. Home Medications Home Medications Medication Instructions Recorded Confirmed Type magnesium 250 mg PO DAILY 05/07/18 06/24/18 History vitamin B complex 1 tab PO DAILY 05/07/18 06/24/18 History PNV cmb#95-ferrous fumarate-FA 1 tab PO DAILY 06/19/18 06/24/18 History [] nifedipine [Adalat CC] 30 mg PO QAM 30 Days #30 tab 06/22/18 06/24/18 Rx lactobacillus combination no.4 1 cap PO DAILY 06/24/18 06/24/18 History [Probiotic] Allergies Allergy/AdvReac Type Severity Reaction Status Date / Time No Known Allergies Allergy Verified 06/24/18 18:21 Past Med/Surg History Medical History delivery delivered Currently Gestational HTN Surgical History No pertinent past surgical history Social History 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 and A total of 10 systems reviewed and were otherwise negative Physical Exam Vital Signs Vital Signs - 24 hr 06/24/18 17:12 06/24/18 18:05 06/24/18 18:35 Temperature 37.0 C Temperature Source Oral Sepsis Recent Fever Within 48 Hours No Sepsis New/Unexplained Change in Mental Status No Sepsis Action Taken by Nursing No Action Required Pulse Rate 100 H 81 Pulse Rate [Right Finger] Pulse Rhythm [Right Finger] Pulse Strength [Right Finger] Respiratory Rate 17 16 Respiratory Effort / Characteristics Respiratory Depth Respiratory Pattern Blood Pressure 148/114 H 157/113 H Blood Pressure [Right Arm] Blood Pressure Mean 125 127 Blood Pressure Mean [Right Arm] Blood Pressure Position Sitting Blood Pressure Position [Right Arm] Pulse Oximetry 97 98 99 Oxygen Delivery Method Room Air Room Air Room Air 06/24/18 18:55 06/24/18 19:28 06/24/18 20:04 Temperature Temperature Source Sepsis Recent Fever Within 48 Hours Sepsis New/Unexplained Change in Mental Status Sepsis Action Taken by Nursing Pulse Rate 85 Pulse Rate [Right Finger] 85 Pulse Rhythm [Right Finger] Pulse Strength [Right Finger] Respiratory Rate 16 18 Respiratory Effort / Characteristics Respiratory Depth Respiratory Pattern Blood Pressure 147/99 H Blood Pressure [Right Arm] 165/105 H 137/72 Blood Pressure Mean 115 Blood Pressure Mean [Right Arm] 125 93 Blood Pressure Position Blood Pressure Position [Right Arm] Lying Pulse Oximetry 100 98 Oxygen Delivery Method Room Air Room Air 06/24/18 20:50 06/24/18 21:56 06/24/18 22:09 Temperature 36.7 C Temperature Source Oral Sepsis Recent Fever Within 48 Hours Sepsis New/Unexplained Change in Mental Status Sepsis Action Taken by Nursing Pulse Rate 88 Pulse Rate [Right Finger] 108 H 94 H Pulse Rhythm [Right Finger] Regular Pulse Strength [Right Finger] Normal Respiratory Rate 18 16 20 Respiratory Effort / Characteristics Non-Labored Spontaneous Respiratory Depth Normal Respiratory Pattern Regular Blood Pressure 142/98 H Blood Pressure [Right Arm] 146/93 H 159/97 H Blood Pressure Mean Blood Pressure Mean [Right Arm] 110 117 Blood Pressure Position Blood Pressure Position [Right Arm] Sitting Pulse Oximetry 98 98 Oxygen Delivery Method Room Air 06/24/18 22:10 06/24/18 22:35 06/24/18 22:40 Temperature Temperature Source Sepsis Recent Fever Within 48 Hours Sepsis New/Unexplained Change in Mental Status Sepsis Action Taken by Nursing Pulse Rate 94 H 95 H 98 H Pulse Rate [Right Finger] Pulse Rhythm [Right Finger] Pulse Strength [Right Finger] Respiratory Rate Respiratory Effort / Characteristics Respiratory Depth Respiratory Pattern Blood Pressure 159/97 H 152/96 H 148/99 H Blood Pressure [Right Arm] Blood Pressure Mean Blood Pressure Mean [Right Arm] Blood Pressure Position Blood Pressure Position [Right Arm] Pulse Oximetry Oxygen Delivery Method 06/24/18 22:55 06/24/18 23:00 06/24/18 23:13 Temperature Temperature Source Sepsis Recent Fever Within 48 Hours Sepsis New/Unexplained Change in Mental Status Sepsis Action Taken by Nursing Pulse Rate 101 H 101 H 99 H Pulse Rate [Right Finger] Pulse Rhythm [Right Finger] Pulse Strength [Right Finger] Respiratory Rate Respiratory Effort / Characteristics Respiratory Depth Respiratory Pattern Blood Pressure 147/99 H 162/102 H Blood Pressure [Right Arm] Blood Pressure Mean Blood Pressure Mean [Right Arm] Blood Pressure Position Blood Pressure Position [Right Arm] Pulse Oximetry 98 Oxygen Delivery Method GENERAL: Sitting up in bed, disheveled, no acute distress, non-toxic HEAD: No tenderness over temporal arteries. EYE EXAM: normal conjunctiva. PERRL and EOM's intact. OROPHARYNX: no exudate, no erythema, lips, buccal mucosa, and tongue normal and mucous membranes are moist NECK: supple, no nuchal rigidity, no adenopathy, non-tender LUNGS: Clear to auscultation. Normal chest wall mechanics HEART: no murmurs, S1 normal and S2 normal ABDOMEN: abdomen soft, non-tender, normo-active bowel, sounds, no masses, no rebound or guarding. BACK: Back is symmetrical on inspection and there is no deformity, no midline tenderness, no CVA tenderness. SKIN: no rashes and no bruising UPPER EXTREMITIES: upper extremities are grossly normal. LOWER EXTREMITIES: No pitting edema. NEURO EXAM: Normal sensorium, cranial nerves II-XII intact, normal speech, no weakness of arms, no weakness of legs. No drift. Finger to nose intact. Gross sensation intact. Course ED COURSE: Vital signs were reviewed and are within normal limits. The patients medical record was reviewed The above diagnostic studies were performed and reviewed. ED treatments and interventions as stated above. 1808: The patient was evaluated in room A11A. A complete history and physical examination was performed. 1999: Dr. Charlton reviewed the patients case with Dr. Allen. She will come evaluate the patient. 2048: Dr. Smith has agreed to accept the patient into her care. I discussed my findings with the patient and she understands and agrees with the treatment plan. Based on the patients age, coexisting illnesses, exam and lab findings the decision to treat as an inpatient was made. The patient remained stable while under my care. The patient will be evaluated for further management. Administered Medications Magnesium Sulfate (Magnesium Sulfate / Wtr) 40 gm in 1,000 mls @ 50 mls/hr IV .Q20H CALEB Stop: 07/24/18 22:29 Last Admin: 06/24/18 23:11 Dose: 50 mls/hr Documented by: [id number] Cosigned by: [id number] Lactated Ringer's (Lr) 1,000 mls @ 75 mls/hr IV .[id number] CALEB Stop: 07/24/18 22:44 Last Admin: 06/24/18 22:57 Dose: 75 mls/hr Documented by: [id number] Discontinued Medications Acetaminophen/Butalbital/Caffeine (Fioricet) 1 tab PO NOW ONE Stop: 06/24/18 23:01 Last Admin: 06/24/18 22:56 Dose: 1 tab Documented by: [id number] Diphenhydramine HCl (Benadryl) 50 mg IV NOW STA Stop: 06/24/18 18:20 Last Admin: 06/24/18 18:36 Dose: 50 mg Documented by: [id number] Hydralazine HCl (Hydralazine Hcl) 10 mg IV NOW STA Stop: 06/24/18 18:04 Last Admin: 06/24/18 18:36 Dose: 10 mg Documented by: [id number] Hydralazine HCl (Hydralazine Hcl) 10 mg IV NOW STA Stop: 06/24/18 19:53 Last Admin: 06/24/18 19:56 Dose: 10 mg Documented by: [id number] Sodium Chloride (Nss) 500 mls @ 999 mls/hr IV .Q31M CALEB Stop: 06/24/18 18:15 Last Infusion: 06/24/18 18:41 Dose: 0 mls/hr Documented by: [id number] Admin: 06/24/18 18:10 Dose: 999 mls/hr Documented by: [id number] Magnesium Sulfate/Dextrose (Magnesium Sulfate / D5w) 1 gm in 100 mls @ 100 mls/hr IV ONE ONE Stop: 06/24/18 21:16 Last Admin: 06/24/18 20:34 Dose: 100 mls/hr Documented by: [id number] Ketorolac Tromethamine (Toradol) 30 mg IV NOW ONE Stop: 06/24/18 18:30 Last Admin: 06/24/18 19:12 Dose: 30 mg Documented by: [id number] Labetalol HCl (Normodyne) 100 mg PO NOW ONE Stop: 06/24/18 22:31 Last Admin: 06/24/18 22:38 Dose: 100 mg Documented by: [id number] Magnesium Sulfate (Magnesium Sulfate / Wtr) 4 gm IV ONE ONE Stop: 06/24/18 22:08 Last Admin: 06/24/18 22:37 Dose: 100 ml Documented by: [id number] Cosigned by: [id number] Medical Decision Making Differential Diagnosis Differential Diagnosis includes but is not limited to headache, tension headache, cluster headache, migraine, subarachnoid hemorrhage, meningitis, mass, central venous thrombus, concussion, trauma and epidural/subdural hemorrhage. Medical Records Attestation: I reviewed the patient's medical records. Home Medications Current Medication List: was personally reviewed by me Laboratory Data Attestation: I reviewed the patient's lab results. Result diagrams: 06/24/18 18:06 06/24/18 18:06 Lab Results 06/24/18 06/24/18 06/24/18 Range/Units 18:06 18:06 18:06 WBC 9.05 (4.8-10.8) K/uL RBC 4.33 (4.2-5.4) M/uL Hgb 11.9 L (12.0-16.0) g/dL Hct 36.9 L (37-47) % MCV 85.2 (80-100) fL MCH 27.5 (25-34) pg MCHC 32.2 (32-36) g/dL RDW Std Deviation 47.4 H (36.4-46.3) fL RDW Coeff of Mich 15.6 H (11.5-14.5) % Plt Count 314 (130-400) K/uL MPV 10.2 (7.4-10.4) fL Immature Gran % (Auto) 0.4 % Neut % (Auto) 64.5 % Lymph % (Auto) 26.6 % Ector % (Auto) 7.1 % Eos % (Auto) 1.2 % Baso % (Auto) 0.2 % Immature Gran # (Auto) 0.04 H (0.00-0.02) K/uL Neut # (Auto) 5.83 (1.4-6.5) K/uL Lymph # (Auto) 2.41 (1.2-3.4) K/uL Ector # (Auto) 0.64 H (0.11-0.59) K/uL Eos # (Auto) 0.11 (0-0.5) K/uL Baso # (Auto) 0.02 (0-0.2) K/uL PT 9.9 (9.0-12.0) Seconds INR 1.0 (0.9-1.1) Sodium 139 (136-145) mmol/L Potassium 3.7 (3.5-5.1) mmol/L Chloride 108 H (98-107) mmol/L Carbon Dioxide 24 (21-32) mmol/L Anion Gap 7.0 (3-11) BUN 12 (7-18) mg/dl Creatinine 0.57 L (0.6-1.2) mg/dl Est Cr Clr Drug Dosing 122.8 ml/min Est GFR ( Amer) 138.2 Est GFR (Non-Af Amer) 119.3 BUN/Creatinine Ratio 22.0 H (10-20) Glucose 84 (70-99) mg/dl Calcium 8.3 L (8.5-10.1) mg/dl Total Bilirubin 0.3 (0.2-1) mg/dl AST 23 (15-37) U/L ALT 36 (12-78) U/L Alkaline Phosphatase 109 (45-117) U/L Total Protein 6.7 (6.4-8.2) gm/dl Albumin 2.8 L (3.4-5.0) gm/dl Globulin 3.9 (2.5-4.0) gm/dl Albumin/Globulin Ratio 0.7 L (0.9-2) Lipase 153 (73-393) U/L Imaging Data Radiologist's Impression: Radiology results as stated below per my review and the radiologist's interpretation: CT SCAN OF THE BRAIN WITHOUT IV CONTRAST CLINICAL HISTORY: Headache. Hypertension. . COMPARISON STUDY: CT of the brain dated 11/28/2010. TECHNIQUE: Unenhanced axial CT scan of the brain is performed from the vertex to the skull base. A dose lowering technique was utilized adhering to the principles of ALARA. CT DOSE: 537.48 mGy.cm FINDINGS: Brain parenchyma: The brain parenchyma is normal in appearance. There is no hemorrhage, mass effect, or evidence of acute territorial ischemia by CT criteria. Woods-white matter differentiation is preserved. No extra-axial fluid collection is seen. Ventricles, sulci, cisterns: Normal in configuration. Intracranial vasculature: The visualized intracranial vasculature at the skull base is normal in appearance. Calvarium: Unremarkable. Sinuses and mastoids: The visualized paranasal sinuses are clear. The mastoid air cells are well pneumatized. Orbits: The bony orbits are grossly intact. IMPRESSION: No acute intracranial abnormality. Electronically signed by: Keshawn Bruce M.D. 06/24/2018 7:37 PM Blood Pressure Blood Pressure Findings: Elevated blood pressure Blood Pressure Disposition: further management by hospitalist LORAINE Narrative Patient is a 38-year-old female who presents to the ER for headache associate with a high blood pressure. Patient was induced at 37 weeks due to gestational hypertension and concern for preeclampsia. She presents today for worsening headache, intermittent tongue numbness. Her neurologic exam is completely intact. She has been taking nifedipine 30 mg daily. Last night the headache came on gradually and gradually worsened. Labs were obtained and showed no significant leukocytosis or anemia. INR was unremarkable. BMP along with LFTs bilirubin and lipase was unremarkable. Platelets were normal. Patient was given IV Toradol and Benadryl. Her headache did improve. She was given 2 dose of IV hydralazine with improvement of her blood pressures from the 160s-130s. CT of the head was negative. Discussed with CHIEF OF [employer] who evaluated her at bedside and admitted her to the hospitalist for further workup. Impression & Plan Pre-eclampsia, Cephalalgia Critical Care Time I have personally spent 35 minutes of critical care time in the direct management of this patient. This includes bedside care, interpretation of diagnostic studies and testing, discussion with consultants, patient, and family members, and other required patient management activities. These 35 minutes is in excess of all separately billable procedures. Critical Care Time: Yes Total Critical Care Time: 35 Discharge Plan Visit Data *Final* Discharge Date/Time: 06/24/18 21:56 Chief Complaint: Headache Stated Complaint: HEADACHE, HIGH BP ED Provider: Stevan Streeter ED Midlevel Provider: Marlene Charlton Discharge Problem: Pre-eclampsia, Cephalalgia Patient Disposition: Admitted As Inpatient Discharge Instructions Interventions: ED Discharge Assessment Last Done: 06/24/18 21:56 The scribe's documentation has been prepared under my direction and personally reviewed by me in its entirety. I confirm that the note above accurately reflects all work, treatment, procedures, and medical decision making performed by me.
[2018-06-25] MEDS: KETOROLAC 30 MG/ML VIAL IV PRN ×3 (02:22→16:32)
[2018-06-25 06:05] LABS: Basophils # (auto) 0.01 K/uL (0-0.2); Basophils % (auto) 0.1 %; Eosinophils # (auto) 0.06 K/uL (0-0.5); Eosinophils % (auto) 0.7 %; Hemoglobin 11.7 g/dL (12.0-16.0); Immature Granulocytes # (auto) 0.03 K/uL (0.00-0.02); Immature Granulocytes % (auto) 0.3 %; Lymphocytes # (auto) 1.62 K/uL (1.2-3.4); Lymphocytes % (auto) 17.8 %; Mean Corpuscular Hgb Conc 32.5 g/dL (32-36); Mean Corpuscular Volume 84.9 fL (80-100); Monocytes % (auto) 7.7 %; Neutrophils # (auto) 6.67 K/uL (1.4-6.5); Neutrophils % (auto) 73.4 %; Platelet Count 273 K/uL (130-400); RDW Standard Deviation 47.9 fL (36.4-46.3); Red Blood Count 4.24 M/uL (4.2-5.4); White Blood Count 9.09 K/uL (4.8-10.8)
[2018-06-25 06:40] LABS: Creatinine Clr Calc Pharmacy 134.8 ml/min; Est GFR (African American) 140.7; Est GFR (Non-African American) 121.4
[2018-06-25] MEDS ORDERED: DIPHENHYDRAMINE IV SCH (08:15)
--- NOTE | 2018-06-25 08:18 | Obstetrical Progress Note ---
Date of Service June 25, 2018 Assessment & Plan (1) Pre-eclampsia: continue MgSO4 for total of 24 hours. will continue with nifedipine & labetalol clear liquids SCD's (2) Status post vaginal delivery: Day #:: 1 Subjective Voiding: no voiding problems Passing Gas:: Yes Diet Tolerance:: clear liquids Lochia:: Small Feeding Type:: breast feeding still has a mild headache. she has migraines when not . fioricet & toradol has helped. she usually gets toradol & benadryl when she has an intract able migraine. no other PIH symptoms. Tongue still continues to be numb on the front 2/3 of her tongue. Physical Exam Vital Signs (Past 24 Hours) Last Vital Signs Temp 36.5 C 06/25/18 07:49 Pulse 91 H 06/25/18 08:11 Resp 16 06/25/18 07:49 BP 140/99 06/25/18 07:44 Pulse Ox 100 06/25/18 08:11 Constitutional WD/WN, vitals as above Neurologic patellar DTR's 2+ bilat, sensation intact and PERRL, EOMI, accommodation nl, no face palsy, no dysarthria Cranial Nerves: tongue midline Genitourinary OB Exam Abdomen: + fundal height (nontender) Fundus: + firm
[2018-06-25] MEDS ORDERED: DiphenhydrAMINE HCL 50 MG/ML VIAL IV PRN (08:45)
[2018-06-25] MEDS: PRENATAL VITAMIN 1 TAB PO SCH (08:58)
[2018-06-25] MEDS: LACTOBACILLUS ACIDOPHILUS (FLORANEX) TAB PO SCH (08:59)
[2018-06-25] MEDS: LABETALOL HCL 100 MG TAB PO SCH ×2 (09:00→21:02)
[2018-06-25] MEDS: NIFEdipine EXTENDED REL 30 MG TABCR PO SCH (09:01)
[2018-06-25] MEDS: VITAMIN B COMPLEX TAB PO SCH (09:01)
[2018-06-25] MEDS: LACTATED RINGER'S 1,000 ML IV SCH (11:29)
--- NOTE | 2018-06-25 11:49 | Obstetrical Progress Note ---
Date of Service June 25, 2018 Subjective Patient is feeling ok. Feeling weak/dizzy from mag. Headache has improved. BPs have improved. I discussed plan of care with patient - will plan to give the full 24h of magnesium. This will be done at 8pm tonight. Will check magnesium level now. After magnesium is finished, will have patient ambulate and re-introduce PO food. Discussed and will continue to breast pump. Physical Exam Vital Signs (Past 24 Hours): Last Vital Signs Temp 36.5 C 06/25/18 07:49 Pulse 74 06/25/18 11:40 Resp 20 06/25/18 10:30 BP 118/74 06/25/18 10:06 Pulse Ox 97 06/25/18 11:40
--- NOTE | 2018-06-26 07:57 | Obstetrical Progress Note ---
Date of Service June 26, 2018 Assessment & Plan (1) Pre-eclampsia: Doing well today. BP is controlled on nifedipine 30mg QD and labetalol 100mg BID. She is feeling much better. Will discharge to home, she has Rx for both of these meds. She will need to followup in the office next week for BP recheck. She has an established neurologist, she will make an appointment to be seen for her tongue numbness. She is agreeable to this plan. Subjective Doing well, is now s/p 24h of magnesium, stopped at 8pm last night. Feeling much better. Headache has greatly improved - she still has a slight headache, but it is much better. Tongue numbness persists. No other deficits. Ambulating, eating, drinking, urinating well. Physical Exam Vital Signs (Past 24 Hours): Last Vital Signs Temp 37.3 C 06/26/18 03:44 Pulse 80 06/26/18 07:35 Resp 18 06/25/18 22:49 BP 121/83 06/26/18 07:35 Pulse Ox 100 06/25/18 22:11 Physical Exam: Gen: AAOx3 NAD CV: RRR L: CTA Abd: soft, NTTP Ext: no edema, 2+ DTR
[2018-06-26] MEDS: LABETALOL HCL 100 MG TAB PO SCH (08:08)
[2018-06-26] MEDS: LACTOBACILLUS ACIDOPHILUS (FLORANEX) TAB PO SCH (08:08)
[2018-06-26] MEDS: NIFEdipine EXTENDED REL 30 MG TABCR PO SCH (08:09)
[2018-06-26] MEDS: PRENATAL VITAMIN 1 TAB PO SCH (08:09)
[2018-06-26] MEDS: VITAMIN B COMPLEX TAB PO SCH (08:09)
--- NOTE | 2018-06-27 12:57 | Discharge Summary ---
Date of Service July 05, 2018 Admission HPI Per Admitting Provider Per Dr De La Cruz's H&P: Patient is a 38 yo white female S/P successful on 06/19/18 after induction for gestational hypertension. Her blood pressures remained elevated postarptum & she was sent home on Nifedipine XR 30mg daily. She had a BP check on 06/23 18 & her BP was 136/92. she was asymptomatic yesterday except for persistent tongue numbness that started about 2 hours after delivery & predated starting the nifedipine. this has been an intermittent issue but it has continued since delivery and has not been getting better. Today she called the office with complaint of a persistent headache. BP in the office was 170/105 and she was sent to the ER for further evaluation. PIH labs are all normal. Head CT scan was also normal. She has had some blurry vision but no other PIH symptoms except the headache. Her BP has been elevated since her admission in the ER and as required IV hydralazine to bring it down clsoer to normotensive range. Because of the headache & elevated BP, she will be admitted for MgSO4 for 24 hours. Discharge Data Consultations 06/24/18 20:05 Consult Obstetrics Stat Hospital Course (1) Pre-eclampsia: Patient was admitted as above, rec'd 24h magnesium sulfate for seizure prophylaxis, BP was normalized with increase in PO meds, and was then discharged home on nifedipine 30mg QD and labetalol 100mg BID. Followup in office within the next week for BP check.
== END 2018-06-26 08:40 | disposition home or self-care (01) | DRG 776 ==
LOC: ED 17:07 → 4S1 20:50
DX: O14.95 Unspecified pre-eclampsia, complicating the puerperium; Z79.899 Other long term (current) drug therapy